=== PATIENT | male | born 1955 | race Caucasian/White ===

== ENCOUNTER → 2018-08-03 15:26 | Outpatient (CLI) | payer OTHER, SELFPAY ==
--- NOTE | 2018-08-03 15:31 | DI.RAD.S_ITS ---
PROCEDURE: XR LUMBAR SPINE 2-3V INDICATIONS: LOW BACK AND RT LEG PAIN TECHNIQUE: 3 views of the lumbar spine were acquired. COMPARISON: None. FINDINGS: Bones: 5 [id number] vertebrae are present. Minimal dextrocurvature centered at the L3-L4 level. Multilevel disc degeneration, severe at the L4-L5 and L5-S1 levels. Moderate L4-L5 and L5-S1 facet joint arthropathy. No vertebral body compression fractures. No suspicious bony lesions. Soft tissues: Overlying bowel gas pattern is normal. No suspicious soft tissue calcifications. Vascular calcifications indicate atherosclerosis. IMPRESSION: Multilevel degenerative change. Dictated by: Piotr Saleem [facility] Interpreted: Jonathan Joseph MD on 08/03/2018 at 16:11 Approved by: Jonathan Joseph M.D. on 08/03/2018 at 17:03
== END ==
PROVIDERS: Visit Provider Chiropractor
DX: M54.5 Low back pain (principal); M79.604 Pain in right leg; M47.816 Spondylosis without myelopathy or radiculopathy, lumbar region; M47.817 Spondylosis without myelopathy or radiculopathy, lumbosacral region
CPT/HCPCS: 72100

== ENCOUNTER → 2019-05-11 11:09 | Outpatient (CLI) | payer OTHER, SELFPAY ==
[2019-05-11 11:20] LABS: Bacteria Urine None Seen; RBC Urine None Seen (0-5/HPF); WBC Urine None Seen (0-5/HPF)
[2019-05-11 12:09] LABS: Add Manual Diff / Slide Review NO; Appearance Urine UA CLEAR; Basophils Absolute Auto 0 /uL (0-100); Basophils Percent Auto 0.7 % (0-2); Bilirubin Urine UA NEGATIVE (NEGATIVE); Color Urine UA YELLOW; Eosinophils Absolute Auto 400 /uL (0-450); Eosinophils Percent Auto 5.1 % (2-4); Glucose Urine UA NEGATIVE (Negative); Hematocrit 42.1 % (41-53); Hemoglobin 14.4 g/dL (13.5-17.5); Ketones Urine UA NEGATIVE (NEGATIVE); Leukocyte Esterase Urine UA NEGATIVE (NEGATIVE); Lymphocytes Absolute Auto 3000 /uL (1100-4500); Lymphocytes Percent Auto 41.1 % (25-40); Mean Corpuscular HGB Conc 34.2 % (30-36); Mean Corpuscular Hemoglobin 32.8 PG (26-34); Mean Corpuscular Volume 95.9 fL (80-100); Monocytes Absolute Auto 800 /uL (0-900); Monocytes Percent Auto 11.2 % (3-14); Neutrophils Absolute Auto 3100 /uL (1500-7000); Neutrophils Percent Auto 41.9 % (50-75); Nitrite Urine UA NEGATIVE (Negative); Occult Blood Urine UA NEGATIVE (Negative); Platelet Count 216 X10^3/uL (150-400); Protein Urine UA NEGATIVE (Negative); Red Blood Cell Count 4.39 X10^6/uL (4.5-5.9); Red Cell Distribution Width 13.3 % (11.6-14.8); Specific Gravity Urine UA <=1.005 (1.000-1.035); Urobilinogen Urine UA 0.2 E.U./dL (0.2); White Blood Cell Count 7.3 X10^3/uL (4.5-11.0); pH Urine UA 7.5 (4.5-8.0)
[2019-05-11 12:26] LABS: Hemoglobin A1C% w Est Avg Glu 5.3 % (4.0-6.0)
[2019-05-11 12:36] LABS: Culture Indicated Urine Cult Not Indicated
[2019-05-11 12:42] LABS: BUN Creatinine Ratio 18.8 (6-22); Blood Urea Nitrogen 15 mg/dL (9-20); Calcium 10.2 mg/dL (8.4-10.2); Carbon Dioxide 26 mmol/L (22-32); Chloride 99 mmol/L (98-107); Estimated Glomerular Filt Rate > 60.0 mL/min (>60); Glucose 83 mg/dL (80-110); HEMOLYSIS < 15 (0-50); Potassium 4.7 mmol/L (3.4-5.1); Sodium 136 mmol/L (137-145)
== END ==
PROVIDERS: Visit Provider Orthopaedic Surgery
DX: Z01.818 Encounter for other preprocedural examination (principal); Z01.812 Encounter for preprocedural laboratory examination; N39.9 Disorder of urinary system, unspecified; Z13.1 Encounter for screening for diabetes mellitus; R73.9 Hyperglycemia, unspecified
CPT/HCPCS: 36415; 80048; 81001; 83036; 85025; 93005; 93010

== ENCOUNTER 2019-08-05 06:13 | Day surgery (SDC) | payer MEDICARE, OTHER, SELFPAY ==
[2019-08-05] VITALS (15 sets, daily range): BP systolic 112–136; BP diastolic 61–88; PULSE 71–94; RESP 12–16; TEMP 35.9–36.8; O2SAT 91–97; BMI 31.6
--- NOTE | 2019-08-05 | DI.RAD.S_ITS ---
PROCEDURE: XR HIP RT 1V INDICATIONS: TOTAL HIP RIGHT ANTERIOR TECHNIQUE: 2 intraoperative fluoroscopic view(s) of the hip acquired. COMPARISON: None. FINDINGS: Bones: Patient is status post right hip arthroplasty, with hardware components in expected positions. The hip joint appears congruent. The visualized bony structures appear intact. Soft tissues: Overlying postoperative changes are noted. No suspicious soft tissue densities. IMPRESSION: Status post right total hip arthroplasty without acute hardware complication. The Dictated by: Anjum Perez M.D. on 08/05/2019 at 17:36 Approved by: Anjum Perez M.D. on 08/05/2019 at 17:37
--- NOTE | 2019-08-05 06:40 | DI.RAD.S_ITS ---
PROCEDURE: XR HIP W PEL IF DONE RT 2V INDICATIONS: post op TECHNIQUE: 2 view(s) of the hip acquired. COMPARISON: None. FINDINGS: Bones: Patient is status post right hip arthroplasty, with hardware components in expected positions. The hip joint appears congruent. The visualized bony structures appear intact. Lower lumbar spondylosis. Left hip joint degenerative changes. Soft tissues: Overlying postoperative changes are noted. No suspicious soft tissue densities. IMPRESSION: Status post right hip arthroplasty without acute hardware complication. Dictated by: Anjum Perez M.D. on 08/05/2019 at 17:47 Approved by: Anjum Perez M.D. on 08/05/2019 at 17:48
[2019-08-05] MEDS: VANCOMYCIN 1,000 MG/200 ML PIGGYBACK 200 MG IV (07:09)
[2019-08-05] MEDS: ACETAMINOPHEN 325 MG TABLET 975 MG PO (07:11)
[2019-08-05] MEDS: CELECOXIB 200 MG CAPSULE PO (07:11)
[2019-08-05] MEDS: PREGABALIN 75 MG CAPSULE PO (07:11)
--- NOTE | 2019-08-05 07:44 | PM.PREOP ---
Pre-operative Note Interval Note History & Physical reviewed/Exam performed by Physician: Yes Changes to H&P: No
--- NOTE | 2019-08-05 07:44 | PM.OP.1 ---
Operative Date/Time/Diagnoses Date of procedure: 08/05/19 Time of procedure: 07:59 Pre-op diagnosis: right hip OA Post-op diagnosis: same Procedure & Clinicians Procedure: right total hip arthroplasty Same procedure as scheduled: Yes Indications: The patient has had progressively worsening right hip pain with radiographic changes consistent with arthritis. Non-operative management has failed and the patient has requested total hip replacement. The risks, benefits and alternatives to surgery were discussed with the patient prior to proceeding. Risks discussed included, but were not limited to, failure to relieve pain, leg length discrepancy, dislocation, stiffness, infection, nerve damage, deep venous thrombosis, pulmonary embolism, stroke, coma, heart attack, permanent paralysis and , as well as the potential need for eventual revision of the prosthetic. Surgeon: Tatiana Slade Commercial Litigation Attorney: Matteo Rahman Anesthesia Type: General and Spinal Operative Notes Findings: Severe right hip osteoarthritis, hard bone, adequate stability Closure Type: primary Specimen(s): none sent Prosthetic devices, grafts, tissues, transplants, or devices: Slade [employer] Nephew 54 mm R3 cup, size 5 anthology high offset, -3 by 36mm head Estimated Blood Loss (mL): 250 Blood products transfused: none Procedure in detail: The patient was brought to the operating room. Patient was carefully positioned in the supine position. Time-out was performed and antibiotics were given. Anesthesia was induced. He was positioned in the on the table in order to allow hyperextension of the hip. The right lower extremity was prepped and draped in a standard sterile fashion. An anterior right hip incision was made 1 fingerbreadth lateral to the anterior superior iliac spine and extended distally towards the greater trochanter. Dissection was carried out through skin and subcutaneous tissues. The skin and subcutaneous tissues were carefully injected with Lidocaine with epi. Superficial hemostasis was achieved. The fascia over the tensor fascia dahiana was defined and incised with a knife. Two Allis clamps were used to grasp the fascia. Tensor fascia dahiana was retracted laterally. A gelpi retractor was placed. Dissection was carried out down along the neck. The circumflex vessels were carefully identified and cauterized with the Aqua Mantis. There was good visualization of the femoral neck. A Cobra was placed superior to the neck and the gluteus fibers were carefully stripped from that superior aspect of the capsule. A 2nd retractor was placed along the inferior aspect of the neck. The rectus insertion along the capsule was partially released. A 3rd retractor that was then gently placed over the rim of the acetabulum under the rectus. Capsule was carefully incised and released from the intertrochanteric line circumferentially superior to the mid sagittal line and inferiorly to the mid sagittal line until the lesser trochanter was palpable. A tag stitch was placed both in the superior and inferior limb of the capsular insertion. Along the acetabulum capsule was also released up to the mid sagittal 12:00 position. A portion of the labrum was resected. A saw was used to perform an osteotomy at the level of the intertrochanteric line and the junction of the superior femoral neck leaving approximately 1 finger breath of residual inferior neck above the lesser trochanter. A 2nd cut was made along the femoral neck at the base of the head and a napkin ring of neck was removed. Corkscrew was placed in the femoral head and the head was removed without difficulty. Retractors were then repositioned around the acetabulum. Residual labrum was resected and additional osteophytes were removed. A reamer that was 4 mm below the templated size was placed by hand in the acetabulum and it was reamed to centralize the acetabulum. It was then reamed up to 2 under the templated size and fluoroscopy was brought in to confirm the position of the reaming and depth of reaming. I reamed 1 under the anticipated size and touched the rim with line to line reaming. A trial cup was placed and noted that it was appropriately sized and fluoroscopy confirmed position and depth. The component was open and inserted without difficulty fluoroscopic imaging was used to confirm that the cup had been adequately seated and was well positioned. Neutral poly liner was placed. The cup was tested and noted to be stable. Attention was then directed to the femur. The femur was gently hyperextended additional capsular release was performed as needed in order to allow adequate visualization of the proximal femur with elevation of the femur. Patient was placed in a hyperextended slightly adducted position with maximum external rotation. Box osteotome was used to check for any residual neck as well as sclerotic bone along the trochanter. [place] pepper was placed in the femur. Additional broaching was performed. Canal finder was used to determine the alignment of the canal and position. Size 1 broach was placed. The canal was then appropriately broached up to the templated size as long as there was adequate stability of the broach and serial advancement of the broach without excessive impingement. Specific attention was directed at avoiding varus attempting to direct the distal aspect of the broach more anteriorly and avoiding excessive anteversion. Trial reduction showed acceptable range of motion, good stability, no posterior impingement, temple of leg length and appropriate lateral shuck. I also hyperflexed the hip and checked that there was no impingement anteriorly and there was good stability with flexion, adduction and internal rotation. Marcaine and Exparel were injected. The stem was placed without difficulty. Repeat trial reduction and x-ray showed acceptable overall position, length, and no evidence of the femoral fracture. Final head was placed. Wound was meticulously irrigated with normal saline. The hip was reduced and additional Exparel and Marcaine were injected. The capsule was closed with interrupted nonabsorbable sutures. The fascia of the tensor was closed with interrupted and running Vicryl. No drain was placed. Any tensor fascia dahiana muscle that appeared to be contused or injured which was a minimal amount was carefully resected. Capsule around the tensor was injected with Exparel and Marcaine. The skin was closed with barbed stitches for the subcutaneous tissue and skin. We also used surgical glue. The wound was dressed sterilely. Brief Betadine soak was also used and was meticulously irrigated with normal saline. Patient was transferred to recovery room in satisfactory condition. Complications: none Post-operative Condition: stable Disposition: Acute Care Plan for aftercare: The patient will be maintained on a standard total hip replacement protocol with weight bearing as tolerated and anterior hip precautions. The patient will receive Aspirin and sequential compression devices for DVT prophylaxis. The patient will be discharged home when safe for the home environment.
[2019-08-05] MEDS: CEFAZOLIN 2 GM/100 ML FROZ.PIGGY IV ×3 (08:06→23:57)
[2019-08-05] MEDS: TRANEXAMIC ACID 1,000 MG VIAL 1000 MG INJ ×2 (08:25→11:16)
--- NOTE | 2019-08-05 08:41 | SUR.OPER ---
Supine on padded [place] table with bilateral legs secured in padded positioning boots and suspended in positioning spars, operative leg in traction per surgeon. Head on one pillow. Arm on non-operative side secured on padded armboard <90 degrees abduction. Arm on operative side padded and resting across chest then secured with tape over sheet. Padded perineal post in place per surgeon.
[2019-08-05] MEDS: SODIUM CHLORIDE IRRIG SOLUTION 250 ML, POVIDONE-IODINE SPONGE STICKS 1 APPLIC IRR (08:48)
[2019-08-05] MEDS: BUPIVACAINE LIPOSOME 266 MG/20 ML VIAL INJ (08:49)
[2019-08-05] MEDS: BUPIVACAINE 0.25% W/ EPI 30 ML VIAL 60 ML INJ (08:51)
[2019-08-05] MEDS: LACTATED RINGERS 1,000 ML 42 ML IV (10:30)
[2019-08-05] MEDS: OXYCODONE IR 5 MG TABLET PO ×2 (12:17→12:43)
--- NOTE | 2019-08-05 13:02 | SUR.PHASEI ---
Patient taken up to room 223 in good condition with all belongings. Receiving RN at bedside
--- NOTE | 2019-08-05 13:56 | CM.DANOTE ---
patient sitting up eating lunch with at BS. Pt. a&Ox4 joking with and CM discussing his post surgery experience... No worse pain than before I came in, I'm getting discharged this afternoon. I thought you were brinng in my prescriptions.. were a couple of the comments he saidto me. Pt. denies any assistance needed from CM. States he and family have everything set up. He will be following up with [facility] next week for scheduled therapy.
--- NOTE | 2019-08-05 13:57 | PC.NURSE ---
Assess- Patient to floor around 1200. He has a aquacel dressing to his r.anterior hip. Given 2 perocolone down in Pacu and seems to be comfortable. CMS to R.hip is wnl, and ppx2. Patient is able to ankle waves and roll onto his side without any difficulty. He is on IVF and on a regular diet.
[2019-08-05] MEDS: LACTATED RINGERS 1,000 ML 125 ML IV ×2 (14:03→22:56)
[2019-08-05] MEDS: IBUPROFEN 400 MG TABLET PO ×3 (14:04→21:40)
[2019-08-05] MEDS: ACETAMINOPHEN 325 MG TABLET 650 MG PO ×2 (14:05→21:40)
--- NOTE | 2019-08-05 15:46 | PT.IIE ---
Current Diagnoses Unilateral primary osteoarthritis, right hip (08/05/19) Surgery Performed Operation Date: 08/05/19 07:45 Actual Procedures p Total Hip Arthroplasty/Anterior Approach(Right) - Tatiana Slade MD Surgical History (Last Updated 07/22/19 @ 13:51 by Tamela Schaeffer, NED) History of colonoscopy (Acute) History of tonsillectomy (Acute) S/P excision of lipoma (Acute ~2004) Medical History (Last Updated 07/22/19 @ 14:02 by Tamela Schaeffer RN) Hypertension (Chronic) Macular degeneration (Acute) Migraine (Chronic) Murmur (Acute) Obstructive sleep apnea (Chronic) Snoring (Chronic) Unilateral primary osteoarthritis, right hip (Acute) Physical Therapy Inpatient Evaluation/Re-Eval M1 PT/OT-IP Prior Functional Status Start: 08/05/19 14:03 Freq: NEEDED Status: Active Protocol: Document 08/05/19 15:21 AW (Rec: 08/05/19 15:46 AW [id number]) Medical Review Prior Functional Status Medical History Reviewed Yes Communication WNL Mobility and Gait Pt states he was independent with all functional mobility but does endorse use of a SPC ~10% of the time due to worsening right hip pain Activities of Daily Living and IADL's Independent but slow with lower body dressing due to pain. Prior Functional Level (Other details) Pt had a preop appointment at [facility] and will follow up with them in 10 days. Social History Household Members spouse Living Arrangements House Number of Floors (Floors) Two Floors Number of Stairs To Enter/Railing? 3 DARIUSZ with no railing. 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 His is able and available to assist 24/7 as needed. M2 PT-IP Current Condition Start: 08/05/19 14:03 Freq: NEEDED Status: Active Protocol: Document 08/05/19 15:21 AW (Rec: 08/05/19 15:46 AW [id number]) Physical Therapy Current Condition Current Condition Evaluation Date 08/05/19 Treatment Diagnosis s/p R TY with anterior approach Onset Date 08/05/19 Precautions Anterior Hip Precautions No Hip Extension,No Hip External Rotation Weight Bearing Status Weight Bearing Status Weight Bear as Tolerated M3 PT-IP Subjective Start: 08/05/19 14:03 Freq: NEEDED Status: Active Protocol: Document 08/05/19 15:21 AW (Rec: 08/05/19 15:46 AW [id number]) Subjective Physical Therapy Visit Type Type Initial Evaluation Visit Start Time 14:08 Visit Stop Time 15:06 Total Visit Minutes 58 Notes Pt's , Yeni, present throughout evaluation and participated in caregiver training. Physical Therapy Visit Comments Patient Comments Pt is feeling good and ready to get out of bed. Patient Goals Pt is considering discharge today Therapy Pain Assessment Pain When Pain Assessed During Mobility Pain Present Pain Present Pain Reported Location right hip Intensity 4 Scale Used 4/10 at rest; unchanged with mobility Pain Management Techniques Apply Cold,Timing of Activity with Medications M4 PT-IP Mobility and Gait Start: 08/05/19 14:03 Freq: NEEDED Status: Active Protocol: Document 08/05/19 15:21 AW (Rec: 08/05/19 15:46 AW [id number]) PT-Bed Mobility Assessment Supine to Sit Supine to Sit Standby Assistance Scooting Scooting to Edge of Bed Standby Assistance PT-Transfer Assessment Sit to and From Stand Sit to and from Stand Standby Assistance,1 Person Assistance,Use of Upper Extremities Equipment Transfer Assistive Device Gait Belt,Front Wheeled Walker Transfers Transfer Destination Chair,Wheelchair Transfer Technique pt ambulated with FWW Transfer Ability Level of Assist Standby Assistance,1 Person Assistance,Use of Upper Extremities Comments Mobility Comments Pt was encountered sitting up in bed. He completed bed mobility and supine to sit SBA with no need to support the operative leg. He was able to sit EOB without UE support and then stood using FWW SBA. After gait assessment, pt returned to the room and transferred to the chair SBA. At that point, pt asked about potential discharge this date and was willing to attempt stair navigation. Pt transferred to a wheelchair using FWW SBA and was pushed to the stairs. His participated in caregiver training for gait belt placement and was able to provide appropriate standby assist for stairs with B rails and with SPC. Pt was wheeled back to his room and he transferred back to the chair SBA where he was positioned with call light and table within reach. Gait Assessment Gait Gait Assistance Required: Standby Assistance Distance (Feet) 120 Able to Maintain Weight Bearing Status Yes During Gait Assistive Devices Assistive Device Gait Belt,Front Wheeled Walker Orthotic/Prosthetic Devices or Brace: No Gait Deviations General Gait Pattern Antalgic,Decreased Stride Length Factors Limiting Gait Function Factors Limiting Gait Function Decreased Strength,Pain Comments Gait Comments Pt ambulated in the hallway with FWW SBA. Gait was remarkable for decreased but symmetrical step length. Pt was appropriate and safe with FWW. Stair Climbing Assessment Evaluation Level of Assist On Stairs Standby Assistance,1 Person Assistance Devices Stair Climbing Assistive Devices Straight Cane,Left Railing, Right Railing Technique/Endurance Stair Climbing Direction Ascend and Descend Stair Climbing Technique Step to Step Number of Steps Climbed 3 Query Text: Stair Climbing Set # Repetitions (reps) 5 Comments Stair Climbing Comments Pt went up and down 3 stairs using SPC SBA and with his providing appropriate cues and guarding. He then went up and down 3 stairs x 4 with bilateral rails SBA to simulate stairs to second level. PT-Balance Assessment Sitting Balance and Reactions Static Sitting Balance Ability Normal Dynamic Sitting Balance Ability Normal Standing Balance and Reactions Static Standing Balance Ability Good Dynamic Standing Balance Ability Good Device Used FWW M5 PT-IP Objective Assessments Start: 08/05/19 14:03 Freq: NEEDED Status: Active Protocol: Document 08/05/19 15:21 AW (Rec: 08/05/19 15:46 AW [id number]) Orientation Orientation/Cognition Level of Alertness Alert Orientation Name,Day of Week,Place, Situation Language Function Ability No Deficits Noted Safety Awareness Understands Safety Issues Memory Description No Deficits Noted Gross Range of Motion Upper Extremity ROM Assessment Within Functional Limits Lower Extremity ROM Assessment Right Impaired Strength Upper Extremity Strength Assessment Within Functional Limits Lower Extremity Strength Assessment Right Impaired Comments Strength Comments LLE grossly 4+/5 Coordination Assessment Gross Coordination Gross Coordination WNL Sensation Assessment Sensation Gross Sensation WNL Muscle Tone Muscle Tone WNL Yes M6 PT-IP Treatment Start: 08/05/19 14:03 Freq: NEEDED Status: Active Protocol: Document 08/05/19 15:21 AW (Rec: 08/05/19 15:46 AW [id number]) Physical Therapy Treatment Exercises Exercises Ankle Pumps,Gluteal Sets,Quad Sets,Heel Slides Education Education Provided Precautions,Weight Bearing Status,Post-Op Packet,Safety Other Treatments Other Treatment Performed Provided education on role of PT, plan of care, post-op exercises, weightbearing status, and safe use of FWW. M7 PT-IP Assessment and Plan Start: 08/05/19 14:03 Freq: NEEDED Status: Active Protocol: Document 08/05/19 15:21 AW (Rec: 08/05/19 15:46 AW [id number]) PT Summary Assessment and Plan Potential Rehabilitation Potential Excellent Status of Condition at Evaluation Evolving Summary Impairments Pain,ROM,Strength,Transfers, Gait Assessment Summary Jim is a 64 yo man seen for PT evaluation on POD0 following R TY with anterior approach. At baseline, he is functionally independent in all regards though does admit to using a SPC ~10% of the time as hip pain worsened recently. On evaluation, pt required SBA for all mobility including stairs. His , Yeni, participated in caregiver training with instructionin using a gait belt, proper/safe guarding technique, and providing SBA on stairs. PT anticipates pt will discharge to home with spouse assist and outpatient PT once medically cleared. Goals Bed Mobility Goal Independent Transfer Goal Independent,Four Wheeled Walker Gait Goal Independent,Four Wheel Walker Gait Distance 200 Other Goals - up/down 3 steps using SPC independent - up/down 14 steps using B rails independent Days to Meet Goals 2 Frequency of Treatment Frequency Of Treatment Twice a Day Treatment Plan Physical Therapy Treatment Plan Bed Mobility Training,Transfer Training,Gait Training, Therapeutic Exercise,Balance Retraining,Post Op Education, Discharge Planning,Hot or Cold Pack,Neuromuscular Re-ed, Coordination Retraining,Manual Therapy Recommendations To Nursing Amount of Assist Needed Standby Assistance Discharge Recommendations PT Discharge Recommendations Home with Assistance, Outpatient PT Transportation Needs at Discharge Private Vehicle
[2019-08-05] MEDS: ASPIRIN EC 81 MG TABLET PO (21:40)
[2019-08-05] MEDS: DOCUSATE 100 MG CAPSULE PO (21:40)
[2019-08-06 00:37] VITALS: BP 121/78; PULSE 82; RESP 18; TEMP 36.4; O2SAT 97
[2019-08-06] MEDS: IBUPROFEN 400 MG TABLET PO ×3 (01:07→09:35)
[2019-08-06 04:38] VITALS: BP 131/75; PULSE 64; RESP 18; TEMP 36.6; O2SAT 100
[2019-08-06 05:52] LABS: Hematocrit 35.4 % (41-53)
[2019-08-06 08:05] VITALS: BP 131/90; PULSE 67; RESP 16; O2SAT 94
[2019-08-06 09:00] VITALS: TEMP 36.6
--- NOTE | 2019-08-06 09:31 | PT.IPTN ---
Current Diagnoses Unilateral primary osteoarthritis, right hip (08/05/19) Surgery Performed Operation Date: 08/05/19 07:45 Actual Procedures p Total Hip Arthroplasty/Anterior Approach(Right) - Tatiana Slade MD Physical Therapy Treatment Note M2 PT-IP Current Condition Start: 08/05/19 14:03 Freq: NEEDED Status: Active Protocol: Document 08/05/19 15:21 AW (Rec: 08/05/19 15:46 AW [id number]) Physical Therapy Current Condition Current Condition Evaluation Date 08/05/19 Treatment Diagnosis s/p R TY with anterior approach Onset Date 08/05/19 Precautions Anterior Hip Precautions No Hip Extension,No Hip External Rotation Weight Bearing Status Weight Bearing Status Weight Bear as Tolerated M3 PT-IP Subjective Start: 08/05/19 14:03 Freq: NEEDED Status: Active Protocol: Document 08/06/19 08:50 HH (Rec: 08/06/19 09:31 HH [id number]) Subjective Physical Therapy Visit Type Type Treatment Note Visit Start Time 08:50 Visit Stop Time 09:15 Total Visit Minutes 25 Notes Pt's , Yeni, present throughout later half of the session Physical Therapy Visit Comments Patient Comments Pt is feeling good and ready to get out of bed. Therapy Pain Assessment Pain Present Pain Present Denied Pain M4 PT-IP Mobility and Gait Start: 08/05/19 14:03 Freq: NEEDED Status: Active Protocol: Document 08/06/19 08:50 HH (Rec: 08/06/19 09:31 HH [id number]) PT-Bed Mobility Assessment Supine to Sit Supine to Sit Independent Scooting Scooting to Edge of Bed Independent PT-Transfer Assessment Sit to and From Stand Sit to and from Stand Standby Assistance,1 Person Assistance,Use of Upper Extremities Equipment Transfer Assistive Device Gait Belt,Front Wheeled Walker Transfers Transfer Destination Chair,Wheelchair Transfer Technique pt ambulated with FWW Transfer Ability Level of Assist Standby Assistance,1 Person Assistance,Use of Upper Extremities Comments Mobility Comments Pt was laying in bed reporting stiffness at the hip. He completed supine to long sit first and pivot his R LE slowly. Educated pt to use L ankle to unweigh RLE afterwards and he was able to perform x2 easily. He then stood up from bed and amb half of the AC unit and returned to chair with SBA. Pt used stagger stance for descend. Placed call light within reach . Gait Assessment Gait Gait Assistance Required: Standby Assistance Distance (Feet) 300 Able to Maintain Weight Bearing Status Yes During Gait Assistive Devices Assistive Device Gait Belt,Front Wheeled Walker Orthotic/Prosthetic Devices or Brace: No Gait Deviations General Gait Pattern Antalgic,Decreased Stride Length Factors Limiting Gait Function Factors Limiting Gait Function Decreased Strength,Pain Comments Gait Comments Pt reports stiffness at hip at first and amb with half step over gait but progress to full step over pattern with FWW. Cont to have slight antalgic gait. Stair Climbing Assessment Evaluation Level of Assist On Stairs Standby Assistance,Contact Guard Assistance Devices Stair Climbing Assistive Devices Straight Cane,Left Railing, Right Railing Technique/Endurance Stair Climbing Direction Ascend and Descend Stair Climbing Technique Step to Step Number of Steps Climbed 3 Stair Climbing Set # Repetitions (reps) 5 Comments Stair Climbing Comments SBA for using B rails. STEPDOWN NURSE on RUE for pt while pt using SPC on L UE. Demonstrated to pt's as well. PT-Balance Assessment Sitting Balance and Reactions Static Sitting Balance Ability Normal Dynamic Sitting Balance Ability Normal Standing Balance and Reactions Static Standing Balance Ability Good Dynamic Standing Balance Ability Good Device Used FWW M5 PT-IP Objective Assessments Start: 08/05/19 14:03 Freq: NEEDED Status: Active Protocol: Document 08/05/19 15:21 AW (Rec: 08/05/19 15:46 [id number]) Orientation Orientation/Cognition Level of Alertness Alert Orientation Name,Day of Week,Place, Situation Language Function Ability No Deficits Noted Safety Awareness Understands Safety Issues Memory Description No Deficits Noted Gross Range of Motion Upper Extremity ROM Assessment Within Functional Limits Lower Extremity ROM Assessment Right Impaired Strength Upper Extremity Strength Assessment Within Functional Limits Lower Extremity Strength Assessment Right Impaired Comments Strength Comments LLE grossly 4+/5 Coordination Assessment Gross Coordination Gross Coordination WNL Sensation Assessment Sensation Gross Sensation WNL Muscle Tone Muscle Tone WNL Yes M6 PT-IP Treatment Start: 08/05/19 14:03 Freq: NEEDED Status: Active Protocol: Document 08/05/19 15:21 AW (Rec: 08/05/19 15:46 [id number]) Physical Therapy Treatment Exercises Exercises Ankle Pumps,Gluteal Sets,Quad Sets,Heel Slides Education Education Provided Precautions,Weight Bearing Status,Post-Op Packet,Safety Other Treatments Other Treatment Performed Provided education on role of PT, plan of care, post-op exercises, weightbearing status, and safe use of FWW. M7 PT-IP Assessment and Plan Start: 08/05/19 14:03 Freq: NEEDED Status: Active Protocol: Document 08/06/19 08:50 HH (Rec: 08/06/19 09:31 HH [id number]) PT Summary Assessment and Plan Potential Rehabilitation Potential Excellent Status of Condition at Evaluation Evolving Summary Impairments Pain,ROM,Strength,Transfers, Gait Progress Towards Goals Safe For Discharge,Goals Met Assessment Summary Pt cont to improve without discomfort and pain. He was able to climb steps with B rails for multiple sets, followed by using SPC on LUE with STEPDOWN NURSE on RUE. Pt is currently safe to go home with 's assistance as needed and outpatient PT to improve mobility and strength. Goals Bed Mobility Goal Independent Transfer Goal Independent,Four Wheeled Walker Gait Goal Independent,Four Wheel Walker Gait Distance 200 Other Goals - up/down 3 steps using SPC independent - up/down 14 steps using B rails independent Days to Meet Goals 2 Frequency of Treatment Frequency Of Treatment Discharge Recommendations To Nursing Amount of Assist Needed Standby Assistance Discharge Recommendations PT Discharge Recommendations Home with Assistance, Outpatient PT Transportation Needs at Discharge Private Vehicle
[2019-08-06] MEDS: AMLODIPINE 5 MG TABLET 10 MG PO (09:35)
[2019-08-06] MEDS: ASPIRIN EC 81 MG TABLET PO (09:35)
[2019-08-06] MEDS: LOSARTAN 50 MG TABLET 100 MG PO (09:35)
[2019-08-06] MEDS: LEVOTHYROXINE 112 MCG TABLET PO (09:35)
[2019-08-06] MEDS: ACETAMINOPHEN 325 MG TABLET 650 MG PO (09:35)
[2019-08-06] MEDS: DOCUSATE 100 MG CAPSULE PO (09:35)
[2019-08-06] MEDS: MULTIVITAMIN 1 TABLET 1 TAB PO (09:36)
--- NOTE | 2019-08-06 10:23 | PC.NURSE ---
Patient is awake and has worked with physical therapy. He has a discharge order and will be released from the hospital at 11am. Dressing to r.anterior hip is an aquacel that is cdi. CMS wnl and ppx2 to r.foot. in room and visiting. Patient given tylenol and ibuprofen for pain and this has been helpful for him.
== END 2019-08-06 11:15 | disposition home or self-care (01) ==
LOC: AC 08-06 08:52 → OR 08-06 11:22
PROVIDERS: PCP Family Medicine; Visit Provider Orthopaedic Surgery
PROC: (CPT 27130; principal; 2019-08-05 07:45)
DX: M16.11 Unilateral primary osteoarthritis, right hip (principal)
CPT/HCPCS: 27130; 36415; 73501; 73502; 76000; 85014; 85018; 94760; 97116; 97161; 97530; C1776; C9290; J0690; J1100; J2250; J2405; J2704; J3010

== ENCOUNTER → 2020-08-02 09:59 | Outpatient (CLI) | payer MEDICARE, OTHER, SELFPAY ==
[2020-03-09 09:16] VITALS: BMI 31.6
[2020-08-02] MEDS: COVID-19 VACC #1, MRNA(MOD) 100 MCG/0.5 ML VIAL IM (10:04)
== END ==
PROVIDERS: Visit Provider Internal Medicine
DX: Z23 Encounter for immunization (principal)
CPT/HCPCS: 0011A; 91301

== ENCOUNTER → 2020-08-30 10:05 | Outpatient (CLI) | payer MEDICARE, OTHER, SELFPAY ==
[2020-03-09 09:16] VITALS: BMI 31.6
[2020-08-30] MEDS: COVID-19 VACC #2, MRNA(MOD) 100 MCG/0.5 ML VIAL IM (10:14)
== END ==
PROVIDERS: Visit Provider Internal Medicine
DX: Z23 Encounter for immunization (principal)
CPT/HCPCS: 0012A; 91301

== ENCOUNTER → 2021-01-18 08:08 | Outpatient (CLI) | payer MEDICARE, OTHER, SELFPAY ==
[2020-03-09 09:16] VITALS: BMI 31.6
--- NOTE | 2021-01-18 | DI.US.S_ITS ---
PROCEDURE: US ABD AORTA ANEURYSM SCREEN INDICATIONS: SCREEN TECHNIQUE: Real time scanning was performed of the aorta and iliac arteries, with image documentation. COMPARISON: None. FINDINGS: Aorta: Proximal aortic diameter measures 2.3 cm. Mid-aorta measures 2.0 cm. Distal aortic diameter is 1.7 cm. Iliac arteries: Right common iliac artery measures 1.0 cm. Left common iliac artery measures 1.0 cm. IMPRESSION: Negative for abdominal aortic aneurysm. Dictated by: Cecil Alvares M.D. on 01/18/2021 at 9:55 Approved by: Cecil Alvares M.D. on 01/18/2021 at 9:55
== END ==
PROVIDERS: PCP Family Medicine; Referring Provider Family Medicine; Visit Provider Family Medicine
DX: Z13.6 Encounter for screening for cardiovascular disorders (principal)
CPT/HCPCS: 76706

== ENCOUNTER → 2021-04-25 09:08 | Outpatient (CLI) | payer MEDICARE, OTHER, SELFPAY ==
[2020-03-09 09:16] VITALS: BMI 31.6
[2021-04-25 11:31] LABS: COVID19 -Nasal RAPID Negative (Negative)
== END ==
PROVIDERS: PCP Family Medicine; Referring Provider Nurse Practitioner; Visit Provider Nurse Practitioner
DX: Z01.812 Encounter for preprocedural laboratory examination (principal); Z20.822 Contact with and (suspected) exposure to COVID-19
CPT/HCPCS: 87635; C9803

== ENCOUNTER 2021-04-27 12:42 | Day surgery (SDC) | payer MEDICARE, OTHER, SELFPAY ==
[2020-03-09 09:16] VITALS: BMI 31.6
--- NOTE | 2021-04-27 | PATH_ITS ---
[facility] Accession Number: [id number] . 01 Material submitted: . colon - SIGMOID POLYP 1 CM . 02 Diagnosis: Sigmoid Colon Polyp, 1 cm, Polypectomy: Tubulovillous adenoma. Negative for high-grade dysplasia or malignancy. MRV 05/01/2021 1510 Local . 02 Electronically signed: . German Owusu MD, PhD, Pathologist NPI- [id number] . 01 Gross description: . SIGMOID POLYP 1 CM: Received in formalin is 1 fragment(s) of tellez, soft tissue measuring 1.5 x 1.2 x 0.5 cm which is inked, serially sectioned and submitted entirely in 1 cassette(s) /CHAU 04/28/2021 0241 Local . 02 Pathologist provided ICD-10: D12.5 . 02 CPT . 981182 Performed at: 01 [facility] [address] [facility], [place], [place] [id number] MD Salvador Michael MD Phone: [phone] Performed at: 02 [facility] [address] [place], [place] [id number] MD Chrissy Schuler MD Phone: [phone]
--- NOTE | 2021-04-27 11:57 | P.HP_ITS ---
History of Present Illness History of Present Illness Date Patient Seen: 04/27/21 Chief complaint: SDC Narrative: 65 year old male comes in today for consideration of a screening colonoscopy. Last colonoscopy in 2009, reportedly normal. There have been no lower GI symptoms suggesting disease such as change in bowel habits, bleeding, abdominal pain or anemia. There's been no family history of colon cancer or colon polyps. Overall health issues have been stable, including no major c ardiac events for at least 6 weeks. PCP: Dr. Harden Past medical history: Impaired fasting glucose History of smoking Hypertension Hyperlipidemia Hypothyroidism BPH Obstructive sleep apnea Erectile dysfunction: Degenerative joint disease of right hip Migraine Past surgical history: Elbow lumpectomy, 2006 Colonoscopy, 2009 Family history: No colon cancer or colon polyps. 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 Migraine Murmur Obstructive sleep apnea Snoring Unilateral primary osteoarthritis, right hip Surgical History History of colonoscopy History of right hip replacement (~07/2019) History of tonsillectomy S/P excision of lipoma (~2004) Family & Social History Social History: household members spouse Tobacco & Substance use: Tobacco type pipe,cigars Smoking Status Former smoker alcohol intake current alcohol intake frequency 0-2 drinks per day Substance Use Type does not use Meds Home Medications and Allergies Home Medications Medication Instructions Recorded Confirmed Type Respironics Dreamstation CPAP #1 ea 04/08/19 04/27/21 History amlodipine 10 mg tablet 10 mg PO DAILY 07/22/19 04/27/21 History atorvastatin 10 mg tablet 10 mg PO SEEINSTR 07/22/19 04/27/21 History glucosamine AYy-A4-Fbhygneqc 2 tab PO DAILY 07/22/19 04/27/21 History natalie 1,500 mg-400 unit-100 mg tablet (Glucosamine Daily Complex) levothyroxine 112 mcg tablet 112 mcg PO DAILY 07/22/19 04/27/21 History losartan 100 mg tablet 100 mg PO DAILY 07/22/19 04/27/21 History yrqupear-bmx-dfkug acid 0.4 1 tab PO DAILY 07/22/19 04/27/21 History mg-lycopene 300 mcg-lutein 250 mcg tablet (Centrum Silver) tadalafil 5 mg tablet (Cialis) 5 mg PO DAILY PRN 07/22/19 04/27/21 History vit C 250 mg-vit E 90 mg-zinc 40 1 tab PO BID 07/22/19 04/27/21 History mg-copper 1 tn-tlcbwu-fomomt capsule (PreserVision AREDS-2) aspirin 81 mg tablet,delayed 81 mg PO BID #40 tab 08/06/19 04/27/21 Rx release Allergies Allergy/AdvReac Type Severity Reaction Status Date / Time No Known Drug Allergies Allergy Verified 04/27/21 13:07 Review of Systems Review of Systems Narrative: All remaining ROS were reviewed and negative except as addressed. Exam Narrative Exam Narrative: GENERAL: Alert and oriented, appearing stated age and in no acute distress. HEENT: Head normocephalic/atraumatic. LUNGS: Clear to ausculation bilaterally, no wheezes, rhonchi or rales. CV: Normal S1 and S2 with regular rate and rhythm, no audible murmurs, rubs or gallops. ABDOMEN: Soft, non-tender, non-distended, no organomegaly. Positive bowel sounds. EXTREMITIES: No clubbing, cyanosis, or edema. NEURO: Cranial nerves II through XII grossly intact, no focal deficits. PSYCH: Alert and oriented x 3. SKIN: No concerning lesions. Assessment & Plan Assessment & Plan narrative: 1. Screening for colon cancer Plan for colonoscopy. The nature and character of the procedure as well as anticipated results were discussed. The possibility of not completing the procedure was also discussed. Possible complications including aspiration pneumonia, bleeding, perforation and reaction to medications either for sedation or preparation and missed lesions were discussed. Questions were answered and proceeding to the colonoscopy was elected. Informed consent signed. I sincerely appreciate the referral allowing me to participate in this patient's care. Please contact me with any questions or concerns.
--- NOTE | 2021-04-27 12:03 | PM.OP.COLON ---
Operative Date/Time/Diagnoses Date of procedure: 04/27/21 Procedure Notes SCOAP/Timeout: 1:48 p.m. Procedure in detail: ENDOSCOPIST: Mehreen Shabazz MD Sedation RN: Chirag Genao RN Sedation start time: 1:49 p.m. Sedation end time: 2:16 p.m. PROCEDURE: Sigmoidoscopy to 30 cm INDICATIONS: 1. Screening for colon cancer MEDICATION: Levsin 0.125 mg sublingual, incremental doses of Versed and fentanyl until appropriate level sedation achieved. ASA CLASS: 2 COMPLICATIONS: None. EXTENT OF PROCEDURE: Cecum. QUALITY OF PREP: Good with portions of liquid stool. PROCEDURE: Prior to insertion of the colonoscope, a digital rectal examination was accomplished with circumferential palpation of the distal rectal mucosa without significant findings being noted. The high-definition colonoscope was passed into the rectum in the usual fashion and advanced over to 30 cm without difficulty. At that point, further advancement of the scope was not possible despite multiple position changes to the left lateral decubitus position, supine position, and right lateral decubitus position. Gentle abdominal pressure in all of these positions did not aid in scope advancement. Decision was made to abandon colonoscopy secondary to risk of perforation and procedure was converted to a sigmoidoscopy. Upon withdrawal, care was taken to expose and inspect the haustral folds and mild diverticulosis was noted throughout. A 1 cm sessile polyp was seen just proximal to the area where the scope could not be advanced. Polyp was lifted with methylene blue and removed with cold snare in 1 piece. Excellent hemostasis noted. RECTUM: Normal. J maneuver was produced. There was no significant perianal disease. The J maneuver was broken. The remainder of the rectum was inspected and there was no external hemorrhoid disease. The scope was withdrawn. IMPRESSION: 1. Sigmoid polyp x1, 1 cm, lifted with methylene blue and removed with cold snare, excellent hemostasis 2. Sigmoid diverticulosis, mild 3. Failed colonoscopy secondary to inability to intubate past 30 cm. PLAN: 1. Follow-up in clinic status post pathology results. 2. Referral to GI. The possibility of a missed lesion including a malignancy has been discussed with the patient previously. Potential alarm symptoms have been discussed and should be reported immediately.
[2021-04-27 13:10] VITALS: BP 118/75; PULSE 73; RESP 16; TEMP 36.8; O2SAT 96; BMI 28.1
[2021-04-27] MEDS: LACTATED RINGERS 1,000 ML 200 ML IV (13:39)
[2021-04-27] MEDS: HYOSCYAMINE 0.125 MG TABLET PO (13:41)
[2021-04-27] MEDS: fentaNYL 250 MCG/5 ML INJ IV (13:53)
[2021-04-27] MEDS: MIDAZOLAM 5 MG/5 ML VIAL IV (13:53)
[2021-04-27] MEDS: METHYLENE BLUE 50 MG/10 ML VIAL INJ (14:09)
[2021-04-27 14:20] VITALS: BP 96/55; PULSE 65; RESP 20; TEMP 36.5; O2SAT 95
[2021-04-27 14:24] VITALS: BP 110/69; PULSE 66; RESP 25; O2SAT 92
[2021-04-27 14:35] VITALS: BP 120/80; PULSE 65; RESP 14; TEMP 36.4; O2SAT 95
== END 2021-04-27 14:45 | disposition home or self-care (01) ==
PROVIDERS: PCP Family Medicine; Referring Provider Student in an Organized Health Care Education/Training Program; Visit Provider Student in an Organized Health Care Education/Training Program
PROC: 0DJD8ZZ Inspection of Lower Intestinal Tract, Via Natural or Artificial Opening Endoscopic (ICD-10-PCS; CPT 45378; principal; 2021-04-27 13:45)
DX: Z12.11 Encounter for screening for malignant neoplasm of colon (principal); I10 Essential (primary) hypertension; E78.5 Hyperlipidemia, unspecified; E03.9 Hypothyroidism, unspecified; G47.33 Obstructive sleep apnea (adult) (pediatric); K57.30 Diverticulosis of large intestine without perforation or abscess without bleeding; Z53.09 Procedure and treatment not carried out because of other contraindication; D12.5 Benign neoplasm of sigmoid colon
CPT/HCPCS: 45385; 45381; J2250; J3010; Q9968

== ENCOUNTER → 2021-08-27 08:59 | Outpatient (CLI) | payer MEDICARE, OTHER, SELFPAY ==
[2020-03-09 09:16] VITALS: BMI 31.6
[2021-08-27 10:45] LABS: COVID19 -Nasal RAPID Negative (Negative)
== END ==
PROVIDERS: PCP Family Medicine; Visit Provider Family Medicine Sleep Medicine
DX: Z20.822 Contact with and (suspected) exposure to COVID-19 (principal)
CPT/HCPCS: 87635; C9803

== ENCOUNTER 2021-08-29 09:31 | Day surgery (SDC) | payer MEDICARE, OTHER, SELFPAY ==
[2020-03-09 09:16] VITALS: BMI 31.6
[2021-08-29 09:43] VITALS: BP 129/72; PULSE 68; RESP 18; TEMP 36.4; O2SAT 97; BMI 29.0
--- NOTE | 2021-08-29 10:18 | PM.HP.1 ---
History of Present Illness History of Present Illness Date Patient Seen: 08/29/21 Chief complaint: DX COLONOSCOPY Narrative: History of failed colonoscopy though large tubulovillous adenoma removed in the sigmoid. 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 Migraine Murmur Obstructive sleep apnea Snoring Unilateral primary osteoarthritis, right hip Surgical History History of colonoscopy History of right hip replacement (~07/2019) History of tonsillectomy S/P excision of lipoma (~2004) Family & Social History Social History: household members spouse Tobacco & Substance use: Tobacco type pipe,cigars Smoking Status Former smoker alcohol intake current alcohol intake frequency 0-2 drinks per day Substance Use Type does not use Meds Home Medications and Allergies Home Medications Medication Instructions Recorded Confirmed Type Respironics Dreamstation CPAP #1 ea 04/08/19 08/29/21 History amlodipine 10 mg tablet 10 mg PO DAILY 07/22/19 08/29/21 History atorvastatin 10 mg tablet 10 mg PO SEEINSTR 07/22/19 08/29/21 History glucosamine UUo-S5-Srumundei 2 tab PO DAILY 07/22/19 08/29/21 History natalie 1,500 mg-400 unit-100 mg tablet (Glucosamine Daily Complex) levothyroxine 112 mcg tablet 112 mcg PO DAILY 07/22/19 08/29/21 History losartan 100 mg tablet 100 mg PO DAILY 07/22/19 08/29/21 History dompeikp-zfu-kqqgh acid 0.4 1 tab PO DAILY 07/22/19 08/29/21 History mg-lycopene 300 mcg-lutein 250 mcg tablet (Centrum Silver) tadalafil 5 mg tablet (Cialis) 5 mg PO DAILY PRN 07/22/19 08/29/21 History vit C 250 mg-vit E 90 mg-zinc 40 1 tab PO BID 07/22/19 08/29/21 History mg-copper 1 at-qieymj-emzway capsule (PreserVision AREDS-2) aspirin 81 mg tablet,delayed 81 mg PO BID #40 tab 08/06/19 08/29/21 Rx release Allergies Allergy/AdvReac Type Severity Reaction Status Date / Time No Known Drug Allergies Allergy Verified 08/29/21 09:39 Exam Vital Signs (past 8 hours): - 08/29/21 09:43 Temperature 97.5 F L Pulse Rate 68 Respiratory Rate 18 Blood Pressure 129/72 Pulse Oximetry 97 Oxygen Delivery Method Room Air Narrative Exam Narrative: Oropharynx free of lesions Chest clear to auscultation percussion Cardiac exam reveals no S3 or murmur Assessment & Plan Assessment & Plan narrative: Colonoscopy other than removal of a large tubulovillous adenoma. Need to follow up on polypectomy site and complete colonoscopy. To delay may cause advancement of disease. Risks, benefits, alternatives have been explained. Time Spent With Patient Critical Care time: I spent a total of [] minutes of critical care time on this patient's care today; this time is exclusive of procedural time.
--- NOTE | 2021-08-29 10:19 | PM.OP.COLON ---
Operative Date/Time/Diagnoses Date of procedure: 08/29/21 Pre-op diagnosis: See indication and findings Procedure & Clinicians Study performed: Colonoscopy Indications: Failed to complete colonoscopy but also large tubulovillous adenoma removed from the sigmoid. Need to check polypectomy site incomplete colonoscopy. Procedure Notes Procedure in detail: After informed consent was obtained the patient was placed in left lateral decubitus position. Video colonoscope was introduced the rectum slowly advanced to the cecum. On slow withdrawal mucosa was carefully examined. Preparation was good. The scope was removed. The patient of the procedure well. Blood loss none Complications none Sedation mac Findings 1. Extensive diverticulosis particularly in the sigmoid with narrowed lumen and tortuosity. This looks difficult time navigating. 2. No polypectomy site was seen at this time. No tattoo was seen either. 3. Otherwise negative colonoscopy to cecum Patient should have follow-up colonoscopy in 3 years given the histologic type of polyp.
[2021-08-29 11:11] VITALS: BP 95/62; PULSE 71; RESP 15; TEMP 36.4; O2SAT 94
[2021-08-29 11:15] VITALS: BP 87/65; PULSE 63; RESP 18; O2SAT 95
[2021-08-29 11:19] VITALS: BP 116/67; PULSE 62; RESP 18; O2SAT 96
--- NOTE | 2021-08-29 11:19 | SUR.PHASEI ---
Discharge instructions reviewed with pt and he verbalized understanding. Tolerating water with no c/o nausea noted.
[2021-08-29 11:25] VITALS: BP 114/78; PULSE 64; RESP 15; O2SAT 96
== END 2021-08-29 11:34 | disposition home or self-care (01) ==
PROVIDERS: PCP Family Medicine; Referring Provider Internal Medicine Gastroenterology; Visit Provider Internal Medicine Gastroenterology
PROC: 0DJD8ZZ Inspection of Lower Intestinal Tract, Via Natural or Artificial Opening Endoscopic (ICD-10-PCS; CPT 45378; principal; 2021-08-29 11:00)
DX: Z12.11 Encounter for screening for malignant neoplasm of colon (principal); I10 Essential (primary) hypertension; E78.5 Hyperlipidemia, unspecified; Z86.010 Personal history of colon polyps; K57.30 Diverticulosis of large intestine without perforation or abscess without bleeding
CPT/HCPCS: G0105

== ENCOUNTER → 2023-02-21 15:16 | Outpatient (CLI) | payer MEDICARE, OTHER, SELFPAY ==
[2020-03-09 09:16] VITALS: BMI 31.6
== END ==
PROVIDERS: PCP Family Medicine; Referring Provider Orthopaedic Surgery; Visit Provider Orthopaedic Surgery
DX: Z01.818 Encounter for other preprocedural examination (principal)
CPT/HCPCS: 93005

== ENCOUNTER 2023-03-18 11:54 | Day surgery (SDC) | payer MEDICARE, OTHER, SELFPAY ==
[2020-03-09 09:16] VITALS: BMI 31.6
[2023-03-13 10:19] VITALS: BMI 29.7
[2023-03-18] VITALS (8 sets, daily range): BP systolic 80–128; BP diastolic 53–75; PULSE 66–82; RESP 12–20; TEMP 36.2–36.8; O2SAT 94–98; BMI 29.7
--- NOTE | 2023-03-18 06:00 | DI.RAD.S_ITS ---
PROCEDURE: XR HIP W PEL IF DONE LT 2V INDICATIONS: left TY, anterior TECHNIQUE: 2 view(s) of the hip acquired. COMPARISON: [facility], CR, XR HIP W PEL IF DONE RT 2V, 08/05/2019, 12:16. FINDINGS: Bones: Patient is status post bilateral hip arthroplasty, with hardware components in expected positions. Fluoroscopic images demonstrate interval left total hip arthroplasty. Soft tissues: Overlying postoperative changes are noted. No suspicious soft tissue densities. IMPRESSION: Postoperative changes of total left hip arthroplasty with remote right hip arthroplasty. Dictated by: Luigi Beckwith M.D. on 03/19/2023 at 10:17 Approved by: Luigi Beckwith M.D. on 03/19/2023 at 10:18
[2023-03-18] MEDS: ACETAMINOPHEN 325 MG TABLET 975 MG PO (12:25)
[2023-03-18] MEDS: LACTATED RINGERS 1,000 ML 42 ML IV ×2 (12:27→15:29)
[2023-03-18] MEDS: VANCOMYCIN 1,000 MG/200 ML PIGGYBACK 200 MG IV (13:08)
--- NOTE | 2023-03-18 13:52 | PM.PREOP ---
Pre-operative Note Interval Note History & Physical reviewed/Exam performed by Physician: Yes Changes to H&P: No
--- NOTE | 2023-03-18 13:53 | P.OP_ITS ---
Operative Date/Time/Diagnoses Date of procedure: 03/18/23 Time of procedure: 14:20 Pre-op diagnosis: Left hip OA Post-op diagnosis: same Procedure & Clinicians Procedure: Left total hip arthroplasty anterior approach Same procedure as scheduled: Yes Indications: The patient has had progressively worsening left hip pain with radiographic zavaleta ges consistent with arthritis. Non-operative management has failed and the patient has requested total hip replacement. The risks, benefits and alternatives to surgery were discussed with the patient prior to proceeding. Risks discussed included, but were not limited to, failure to relieve pain, leg length discrepancy, dislocation, stiffness, infection, nerve damage, deep venous thrombosis, pulmonary embolism, stroke, coma, heart attack, permanent paralysis and , as well as the potential need for eventual revision of the prosthetic. Surgeon: Tatiana Slade Joint Cutter Machine: Sergei Rosales Anesthesia Type: General and Spinal Operative Notes Findings: Severe left hip OA, adequate bone, adequate stability Closure Type: primary Specimen(s): none sent Prosthetic devices, grafts, tissues, transplants, or devices: Slade and nephew R3 54, neutral poly liner, one 6.5 mm screw. Anthology A high offset size 6, 36 x -3 Oxinium head Estimated Blood Loss (mL): 250 Blood products transfused: none Procedure in detail: The patient was brought to the operating room. Patient was carefully positioned in the supine position. Time-out was performed and antibiotics were given. Anesthesia was induced. He was positioned in the on the table in order to allow hyperextension of the hip. The left lower extremity was prepped and draped in a standard sterile fashion. An anterior left hip incision was made 1 fingerbreadth lateral to the anterior superior iliac spine and extended distally towards the greater trochanter. Dissection was carried out through skin and subcutaneous tissues. Superficial hemostasis was achieved. The fascia over the tensor fascia dahiana was defined and incised with a knife. Two Allis clamps were used to grasp the fascia. Tensor fascia dahiana was retracted laterally. A gelpi retractor was placed. Dissection was carried out down along the neck. The circumflex vessels were carefully identified and cauterized with the Aqua Mantis. PA was used throughout the procedure and was essential for retraction and helping establish adequate hemostasis. They were also extremely helpful for adequately implanting the components. There was good visualization of the femoral neck. A Cobra was placed superior to the neck and the gluteus fibers were carefully stripped from that superior aspect of the capsule. He had a very tight hip and fairly tight musculature around the hip which made exposure somewhat more difficult. A 2nd retractor was placed along the inferior aspect of the neck. The rectus insertion along the capsule was partially released. A 3rd retractor that was then gently placed over the rim of the acetabulum under the rectus. Capsule was carefully incised and released from the intertrochanteric line circumferentially superior to the mid sagittal line and inferiorly to the mid sagittal line until the lesser trochanter was palpable. A tag stitch was placed both in the superior and inferior limb of the capsular insertion. Along the acetabulum capsule was also released up to the mid sagittal 12:00 position. A portion of the labrum was resected. A saw was used to perform an osteotomy at the level of the intertrochanteric line and the junction of the superior femoral neck leaving approximately 1 finger breath of residual inferior neck above the lesser trochanter. A 2nd cut was made along the femoral neck at the base of the head and a napkin ring of neck was removed. Corkscrew was placed in the femoral head and the head was removed without difficulty. Retractors were then repositioned around the acetabulum. Residual labrum was resected and additional osteophytes were removed. A reamer that was 4 mm below the templated size was placed by hand in the acetabulum and it was reamed to centralize the acetabulum. It was then reamed up to 2 under the templated size and fluoroscopy was brought in to confirm the position of the reaming and depth of reaming. I reamed 1 under the anticipated size. There was slight eccentric reaming anteriorly. A trial cup was placed and noted that it was appropriately sized and fluoroscopy confirmed position and depth. The component was open and inserted with fluoroscopic imaging was used to confirm that the cup had been adequately seated and was well positioned. The cup was checked it was then readjusted slightly and reinserted. It was further stabilized with screws. The stability was specifically checked. There was good bite on the screws. Neutral poly liner w as placed. The cup was tested and noted to be stable. Attention was then directed to the femur. The femur was gently hyperextended additional capsular release was performed as needed in order to allow adequate visualization of the proximal femur with elevation of the femur. Patient was placed in a hyperextended slightly adducted position with maximum external rotation. Box osteotome was used to check for any residual neck as well as sclerotic bone along the trochanter. [place] pepper was placed in the femur. Additional broaching was performed. Canal finder was used to determine the alignment of the canal and position. Size 1 broach was placed. The canal was then appropriately broached up to the templated size as long as there was adequate stability of the broach and serial advancement of the broach without excessive impingement. Specific attention was directed at avoiding varus attempting to direct the distal aspect of the broach more anteriorly and avoiding excessive anteversion. Trial reduction showed acceptable range of motion, good stability, no posterior impingement, mandaen of leg length and appropriate lateral shuck. I also hyperflexed the hip and checked that there wa s no impingement anteriorly and there was good stability with flexion, adduction and internal rotation. Marcaine and Exparel were injected. The stem was placed without difficulty. Repeat trial reduction and x-ray showed acceptable overall position, length, and no evidence of the femoral fracture. Final head was placed. Wound was meticulously irrigated with normal saline. The hip was reduced and additional Exparel and Marcaine were injected. The capsule was closed with interrupted nonabsorbable sutures. The fascia of the tensor was closed with interrupted and running Vicryl. No drain was placed. Any tensor fascia dahiana muscle that appeared to be contused or injured which was a minimal amount was carefully resected. Capsule around the tensor was injected with Exparel and Marcaine. The skin was closed with barbed stitches for the subcutaneous tissue and skin. We also used surgical glue. The wound was dressed sterilely. Brief Betadine soak was also used and was meticulously irrigated with normal saline. Patient was transferred to recovery room in satisfactory condition. Complications: none Post-operative Condition: stable Disposition: Acute Care Plan for aftercare: The patient will be maintained on a standard total hip replacement protocol with weight bearing as tolerated and anterior hip precautions. The patient will receive Aspirin and sequential compression devices for DVT prophylaxis. The patient will be discharged home when safe for the home environment.
[2023-03-18] MEDS: CEFAZOLIN 2 GM/100 ML PREMIX 100 ML IV ×2 (14:30→22:39)
[2023-03-18] MEDS: TRANEXAMIC ACID 1,000 MG VIAL 2000 MG INJ ×2 (15:00→17:29)
--- NOTE | 2023-03-18 15:11 | SUR.OPER ---
Patient supine on padded [place] table, one arm on padded arm board at <90, other arm padded with gel and secured with tape across patient's chest, both legs secured in padded traction boots and positioned per surgeon, padded post at patient's groin, pressure points checked and padded.
[2023-03-18] MEDS: BUPIVACAINE 0.25% (PF) 60 ML, EPINEPHrine 0.3 MG INJ (16:56)
[2023-03-18] MEDS: BUPIVACAINE LIPOSOME 266 MG/20 ML VIAL INJ (16:57)
--- NOTE | 2023-03-18 18:00 | DI.RAD.S_ITS ---
PROCEDURE: XR HIP W PEL IF DONE LT 2V INDICATIONS: LEFT HIP ANTERIOR POST OP TECHNIQUE: 2 view(s) of the hip acquired. COMPARISON: [facility], [place], XR HIP W PEL IF DONE LT 2V, 03/18/2023, 16:10. [facility], [place], XR HIP W PEL IF DONE RT 2V, 08/05/2019, 12:16. FINDINGS: Bones: Patient is status post left hip arthroplasty, with hardware components in expected positions. The hip joint appears congruent. The visualized bony structures appear intact. Remote right hip arthroplasty. Soft tissues: Overlying postoperative changes are noted. No suspicious soft tissue densities. IMPRESSION: Status post interval left hip arthroplasty now with bilateral total hip arthroplasties. Dictated by: Luigi Beckwith M.D. on 03/19/2023 at 10:18 Approved by: Luigi Beckwith M.D. on 03/19/2023 at 10:19
[2023-03-18] MEDS: ACETAMINOPHEN 325 MG TABLET 650 MG PO (18:40)
[2023-03-18] MEDS: IBUPROFEN 400 MG TABLET PO ×2 (18:40→22:38)
[2023-03-18] MEDS: LACTATED RINGERS 1,000 ML 100 ML IV (18:41)
--- NOTE | 2023-03-18 18:55 | PC.NURSE ---
Postop Note Pt to room 223 from PACU at 1825. Alert and oriented x4. SpO2 in the upper 90s. Reports pain 2/10 to left hip, received scheduled tylenol and ibuprofen. Pt declines further medication at this time. CMS intact to both lower extremities other than some numbness to top of both feet. Oriented to room and to bed/tv/call light controls. Call light within reach and bed alarm on.
[2023-03-18] MEDS: VIT C/E/ZN/COPPR/LUTEIN/ZEAXAN CAPSULE 1 CAP PO (20:46)
[2023-03-18] MEDS: DOCUSATE 100 MG CAPSULE PO (20:46)
[2023-03-18] MEDS: ATORVASTATIN 20 MG TABLET 10 MG PO (20:46)
[2023-03-18] MEDS: ASPIRIN EC 81 MG TABLET PO (20:46)
[2023-03-19] MEDS: ACETAMINOPHEN 325 MG TABLET 650 MG PO ×3 (00:09→12:08)
[2023-03-19] MEDS: IBUPROFEN 400 MG TABLET PO ×3 (02:39→10:00)
[2023-03-19] MEDS: CEFAZOLIN 2 GM/100 ML PREMIX 100 ML IV (05:26)
[2023-03-19] MEDS: LEVOTHYROXINE 112 MCG TABLET PO (05:27)
[2023-03-19 05:29] LABS: Hematocrit 36.6 % (41-53); Hemoglobin 12.4 g/dL (13.5-17.5)
--- NOTE | 2023-03-19 07:22 | P.DS_ITS ---
History of Present Illness History of Present Illness Date Patient Seen: 03/19/23 Time Patient Seen: 07:22 Chief complaint: Left Total Hip Arthroplasty/Anterior Approach 03/18 Narrative: Operative Date/Time/Diagnoses Date of procedure: 03/18/23 Time of procedure: 14:20 Pre-op diagnosis: Left hip OA Post-op diagnosis: same Procedure & Clinicians Procedure: Left total hip arthroplasty anterior approach Same procedure as scheduled: Yes Indications: The patient has had progressively worsening left hip pain with radiographic c hanges consistent with arthritis. Non-operative management has failed and the patient has requested total hip replacement. The risks, benefits and alternatives to surgery were discussed with the patient prior to proceeding. Risks discussed included, but were not limited to, failure to relieve pain, leg length discrepancy, dislocation, stiffness, infection, nerve damage, deep venous thrombosis, pulmonary embolism, stroke, coma, heart attack, permanent paralysis and , as well as the potential need for eventual revision of the prosthetic. Surgeon: Tatiana Slade Prepress Supervisor: Sergei Rosales Anesthesia Type: General and Spinal Operative Notes Findings: Severe left hip OA, adequate bone, adequate stability Closure Type: primary Specimen(s): none sent Prosthetic devices, grafts, tissues, transplants, or devices: Slade and nephew R3 54, neutral poly liner, one 6.5 mm screw.? Anthology A high offset size 6, 36 x -3 Oxinium head Estimated Blood Loss (mL): 250 Blood products transfused: none Discharge Providers Provider Discharge Date: 03/19/23 Primary care physician: Coleman Harden MD Consults: 03/18/23 06:00 Consult to Anesthesiology Routine Comment: Consulting Provider: Anesthesiologist Reason for consultation: Regional block for post operative pain control 03/18/23 18:20 Consult to Discharge Planning Routine Comment: Consult to Occupational Therapy Evaluate & Treat Comment: Physician Instructions: Evaluate and treat Consult to Physical Therapy Evaluate & Treat Comment: Physician Instructions: post op TY protocol Discharge provider: Herlinda Barker PA-C Summary Hospital Course Discharge Diagnosis: Left hip osteoarthritis, s/p left total hip arthroplasty Hospital Course: Mr Fuentes's hospital course was unremarkable. On the morning of POD# 1, he was feeling well and wanted to go home. He was eating and voiding without difficulty and his pain was well-controlled with oral medication. He had not yet been evaluated by PT, but had been OOB and walking. Exam Vital Signs (past 8 hours): Oxygen Delivery Method CPAP Oxygen Flow Rate 0 Narrative Exam Narrative: 5/5 strength in hip flexors, quadriceps, hamstrings, DF, PF, EHL on left. Sensation to light touch intact throughout LE. Calf soft, compressible, nontender. Aquacel dressing CDI. 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 ASA 81mg BID x 6 weeks for VTE prophylaxis, outpt PT, f/u in office in 2 weeks as scheduled. Discharge Plan Discharge Plan Patient Disposition: Home Discharge orders & Medications Discharge Orders: Discharge (Order); Ordered 03/19/23 Ordered By: Herlinda Barker Prescriptions: Continued atorvastatin 10 mg Tablet 10 mg PO SEEINSTR Rx Instructions: every other day amlodipine 10 mg Tablet 10 mg PO DAILY losartan 100 mg Tablet 100 mg PO DAILY levothyroxine 112 mcg Tablet 112 mcg PO DAILY tadalafil [Cialis] 5 mg Tablet 5 mg PO DAILY PRN (Reason: Sexual Activity) Centrum Silver 0.4-300-250 mg-mcg-mcg Tablet 1 tab PO DAILY [id number] serr [Glucosamine Daily Complex] 1,500-400-100 mg-unit-mg Tablet 2 tab PO DAILY PreserVision AREDS-2 178-289-24-1 et-xqit-di-mg Capsule 1 tab PO BID aspirin 81 mg Tablet,Delayed Release (Dr/Ec) 81 mg PO BID Qty: 40 0RF (DME) Respironics Dreamstation CPAP Qty: 1 Patient Comments: Pressure: 8-18 cmH2O DME: [facility] Rx Instructions: As directed Follow up/Referrals: Tatiana Slade MD [Physician] - As previously scheduled (Follow up with Dr Slade on 04/02/2023 @ 1:30 pm at [facility] office in [place].) Coleman Harden MD [Primary Care Provider] - Diet/Activity/Treatments Diet: Diet as Tolerated Activity: Weightbearing as tolerated to left leg. Anterior hip precautions. Cold/Heat Therapy: Ice to hip as needed for pain. Skin/Wound/Dressing Care Report to your healthcare provider any signs of infection, such as:: chills, fever, night sweats, unusual drainage and unusual redness Dressing: May shower. Leave dressing in place until follow up in office. No bathing or otherwise soaking incision. Call the office if the dressing becomes saturated inside. Visit Report/Discharge Packet Instructions: DI for Hip Replacement, DI for Prescription Opioid Use Stand Alone Forms: Patient Portal/API, Surgery Discharge Discharge Data Primary Care Provider: Coleman Harden Attending Provider: Tatiana Slade Quality VTE Deep Vein Thrombosis/Pulmonary Embolism Present on Admission: No
[2023-03-19 08:30] VITALS: BP 128/65
[2023-03-19] MEDS: LOSARTAN 50 MG TABLET 100 MG PO (08:30)
[2023-03-19] MEDS: DOCUSATE 100 MG CAPSULE PO (08:30)
[2023-03-19] MEDS: ASPIRIN EC 81 MG TABLET PO (08:30)
[2023-03-19] MEDS: AMLODIPINE 5 MG TABLET 10 MG PO (08:31)
[2023-03-19] MEDS: VIT C/E/ZN/COPPR/LUTEIN/ZEAXAN CAPSULE 1 CAP PO (08:31)
[2023-03-19] MEDS: MULTIVITAMIN 1 TABLET 1 TAB PO (08:31)
--- NOTE | 2023-03-19 10:10 | PT.IIE ---
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 Migraine Murmur Obstructive sleep apnea Snoring Unilateral primary osteoarthritis, right hip Physical Therapy Inpatient Evaluation/Re-Eval M1 PT/OT-IP Prior Functional Status Start: 03/19/23 12:02 Freq: NEEDED Status: Active Protocol: Document 03/19/23 10:10 AB (Rec: 03/19/23 12:20 AB [id number]) Medical Review Prior Functional Status Medical History Reviewed Yes Communication able to make needs known Mobility and Gait pt stated that he is independent with all mobilities and ambulation without AD Social History Household Members spouse Living Arrangements House Number of Floors (Floors) Two Floors Number of Stairs To Enter/Railing? 2 platform stept without rails to enter the house 14 steps B rails to get to 2nd level bedroom Home Environment Standard Height Toilet,Walk in Shower Home Equipment Front Wheel Walker,Straight Cane,Raised Toilet Seat w/ Armrests,Shower Seat without Backrest,Hand Held Shower,Grab Bars In Shower M2 PT-IP Current Condition Start: 03/19/23 12:02 Freq: NEEDED Status: Active Protocol: Document 03/19/23 10:10 AB (Rec: 03/19/23 12:20 AB [id number]) Physical Therapy Current Condition Current Condition Evaluation Date 03/19/23 Treatment Diagnosis s/p L TY anterior approach; difficulty in walking Onset Date 03/18/23 M3 PT-IP Subjective Start: 03/19/23 12:02 Freq: NEEDED Status: Active Protocol: Document 03/19/23 10:10 AB (Rec: 03/19/23 12:20 AB [email or web address]) Subjective Physical Therapy Visit Type Type Initial Evaluation Visit Start Time 10:10 Visit Stop Time 11:10 Total Visit Minutes 60 Number of SCRAP IRON CUTTER Visits 0 Physical Therapy Visit Comments Patient Comments agreeable to do PT Therapy Pain Assessment Pain When Pain Assessed At Rest Pain Present Pain Present Pain Reported Location Left Hip Intensity 3 Scale Used Numeric (0 - 10) Pain Behaviors Guarding Pain Management Techniques Distraction,Modification of Treatment,Re-positioning, Timing of Activity with Medications M4 PT-IP Mobility and Gait Start: 03/19/23 12:02 Freq: NEEDED Status: Active Protocol: Document 03/19/23 10:10 AB (Rec: 03/19/23 12:20 AB [id number]) PT-Bed Mobility Assessment Supine to Sit Supine to Sit Standby Assistance Sit to Supine Sit to Supine Standby Assistance PT-Transfer Assessment Sit to and From Stand Sit to and from Stand Standby Assistance,1 Person Assistance,Use of Upper Extremities Equipment Transfer Assistive Device Gait Belt,Front Wheeled Walker Orthotic/Prosthetic Devices or Brace: No Transfers Transfer Destination Bed,Chair Transfer Technique ambulated Transfer Ability Level of Assist Standby Assistance,1 Person Assistance,Use of Upper Extremities Comments Mobility Comments pt sitting on the chair. spouse in room. educated pt on L anterior hip precautions. pt completed sit to stand from the chair. pt tends to pull on FWW to stand. educated pt with sit<>stand techniques and completed again x 2 reps SBA. ambulated towards EOB ~ 12 ft min A using fWW. cued for L quads activation. required initial cues for hip precautions. pt educated on bed mobility techniques. repeated x 2 sets SBA. initial cues provided for techniques but afterwards completed without cues needed. completed sit to stand from EOB SBA ambulated in the hallway using FWW SBA ~ 150ft occasional cues for quads activation and precautions. reviewed car transfer techniques. educated pt and spouse regarding stair climbing. pt completed up/down platform step using FWW x 2 sets CGA to min A. spouse was able to assist and cue pt . completed up/down steps using B rails CGA to min A and cues. spouse assisted. assisted pt back to his room. pt ambulated form w/c to chair using FWW SBA. spouse assisted pt. positioned pt on the chair. pt and spouse without further concerns. educated spouse on how to use safety belt. spouse was able to don/doff safety belt on pt. OT took over pt's care. Gait Assessment Gait Gait Assistance Required: Standby Assistance,Contact Guard Assist Distance (Feet) 150 Able to Maintain Weight Bearing Status Yes During Gait Assistive Devices Assistive Device Gait Belt,Front Wheeled Walker Orthotic/Prosthetic Devices or Brace: No Gait Deviations General Gait Pattern Antalgic,Decreased Stride Length,Decreased Feet Clearance,Step-to Gait Factors Limiting Gait Function Factors Limiting Gait Function Decreased Activity Tolerance, Decreased Strength,Limited Range of Motion,Pain,Poor Balance,Poor Safety Awareness Stair Climbing Assessment Evaluation Level of Assist On Stairs Contact Guard Assistance, Minimal Assistance Devices Stair Climbing Assistive Devices Left Railing,Right Railing Technique/Endurance Stair Climbing Direction Ascend and Descend Stair Climbing Technique Step to Step Number of Steps Climbed 3 Query Text: Stair Climbing Set # Repetitions (reps) 2 PT-Balance Assessment Sitting Balance and Reactions Static Sitting Balance Ability Normal Dynamic Sitting Balance Ability Normal Standing Balance and Reactions Static Standing Balance Ability Good Dynamic Standing Balance Ability Fair Device Used FWW M5 PT-IP Objective Assessments Start: 03/19/23 12:02 Freq: NEEDED Status: Active Protocol: Document 03/19/23 10:10 AB (Rec: 03/19/23 12:20 AB [email or web address]) Orientation Orientation/Cognition Level of Alertness Alert Orientation Name,Situation Language Function Ability No Deficits Noted Safety Awareness Decreased Safety Awareness Memory Description Short Term Impaired Gross Range of Motion Lower Extremity ROM Assessment Within Functional Limits Strength Lower Extremity Strength Assessment Left Impaired Hip 3+/5 Knee 4-/5 Coordination Assessment Gross Coordination Gross Coordination WNL Sensation Assessment Sensation Gross Sensation WNL Muscle Tone Muscle Tone WNL Yes M6 PT-IP Treatment Start: 03/19/23 12:02 Freq: NEEDED Status: Active Protocol: Document 03/19/23 10:10 AB (Rec: 03/19/23 12:20 AB [id number]) Physical Therapy Treatment Education Education Provided Precautions,Weight Bearing Status,Post-Op Packet,Safety M7 PT-IP Assessment and Plan Start: 03/19/23 12:02 Freq: NEEDED Status: Active Protocol: Document 03/19/23 10:10 AB (Rec: 03/19/23 12:20 AB [id number]) PT Summary Assessment and Plan Potential Rehabilitation Potential Good Status of Condition at Evaluation Stable Summary Impairments Pain,ROM,Strength,Balance, Coordination,Sensation,Tone, Cognition,Bed Mobility, Transfers,Gait,Activity Tolerance Assessment Summary pt is a 67 y/o male who underwent L TY anterior approach POD 1. pt is WBAT LLE and with anterior hip precautions. pt plans to go home with spouse to assist. caregiver training completed and spouse was able to safely assist pt. pt may go home when medically stabel. Goals Bed Mobility Goal Independent Transfer Goal Independent,Front Wheeled Walker Gait Goal Independent,Front Wheel Walker Gait Distance 250 Other Goals up/down 2 platform steps using FWW mod I up/down 14 steps B rails mod I Days to Meet Goals 5 Frequency of Treatment Frequency Of Treatment Twice a Day Treatment Plan Physical Therapy Treatment Plan Bed Mobility Training,Transfer Training,Gait Training, Therapeutic Exercise,Balance Retraining,Post Op Education, Discharge Planning,Hot or Cold Pack,Neuromuscular Re-ed, Coordination Retraining,Manual Therapy Precautions Anterior Hip Precautions No Hip Extension,No Hip External Rotation Weight Bearing Status Weight Bearing Status Weight Bear as Tolerated Allowed Weight Bearing Amount (enter % LLE WBAT or #) (%) Recommendations To Nursing Amount of Assist Needed Standby Assistance Discharge Recommendations PT Discharge Recommendations Home with Assistance, Outpatient PT Transportation Needs at Discharge Private Vehicle
--- NOTE | 2023-03-19 11:38 | OT.IP.EVAL ---
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 Migraine Murmur Obstructive sleep apnea Snoring Unilateral primary osteoarthritis, right hip Surgical History (Last Reviewed 01/14/22 @ 13:10 by Rodger Vargas MD) History of colonoscopy History of right hip replacement (~07/2019) History of tonsillectomy S/P excision of lipoma (~2004) Occupational Therapy Inpatient Evaluation/Re-Eval M1 PT/OT-IP Prior Functional Status Start: 03/19/23 12:07 Freq: NEEDED Status: Active Protocol: Document 03/19/23 11:05 [facility] (Rec: 03/19/23 12:24 [facility] [id number]) Medical Review Prior Functional Status Communication Independent Mobility and Gait Pt had pain which limited his walking. Pt did not use a device to walk with. Activities of Daily Living and IADL's Pt able to do with pain for ADL and IADl needs. Social History Household Members spouse Living Arrangements House Number of Floors (Floors) Two Floors Number of Stairs To Enter/Railing? 3 steps with no rails and 14 steps to the bedroom with left banister and 1/2 wall on the right. Home Environment Standard Height Toilet,Walk in Shower Home Equipment Front Wheel Walker,Straight Cane,Raised Toilet Seat Without Armrests,Shower Seat without Backrest,User Support Specialist,Sock Aid Additional Social History Comment Pt has a supportive to be able to assist pt at home. M2 OT-IP Current Condition Start: 03/19/23 12:07 Freq: Status: Active Protocol: Document 03/19/23 11:05 [facility] (Rec: 03/19/23 12:24 [facility] [id number]) Occupational Therapy Current Condition Current Condition Evaluation Date 03/19/23 Treatment Diagnosis S/p L TY anterior approach. Diagnosis Onset Date 03/18/23 Post Operative Precautions Anterior Hip Precautions No Hip Extension,No Hip External Rotation M3 OT- IP Subjective and Pain Start: 09/13/23 12:07 Freq: Status: Active Protocol: Document 03/19/23 11:05 [facility] (Rec: 03/19/23 12:24 [facility] [id number]) OT- Subjective Occupational Therapy Visit Type Type Initial Evaluation Visit Start Time 11:05 Visit Stop Time 11:38 Total Visit Minutes 33 Occupational Therapy Visit Comments Patient Comments Pt agreed to shower and pt's present for OT eval. Patient/Caregiver Goals TO go home. OT Pain Assessment Pain When Pain Assessed At Rest Pain Present Pain Present Denied Pain M4 OT- IP ADL's Start: 03/19/23 12:07 Freq: Status: Active Protocol: Document 03/19/23 11:05 [facility] (Rec: 03/19/23 12:24 [facility] [id number]) OT IHQ-[id number]-Hjuztmy General Evaluation Self-Feeding Ability Independent OT ADL-Grooming General Evaluation Grooming Ability Independent OT ADL-Oral Care General Eval Oral Care Ability Independent OT ADL-Dressing General Eval Upper Body Dressing Ability Minimal Assistance Lower Body Dressing Ability Maximum Assistance Areas Needing Assistance Socks,Shoes Comments OT Dressing Comments Pt needing assist to get button shirt on over his shoulders. Pt needing assist from his for socks and pants to get over his feet. Pt has a drafter electronic at home he can use to assist. OT ADL-Toileting Comments OT Toileting Comments Pt states able to use urinal at home if needed. OT ADL-Bathing Bathing Type Bathing Type Shower General Evaluation Bathing Ability Minimal Assistance,Moderate Assistance Areas Needing Assistance Wash/Dry Back,Wash/Dry Lower Extremities Comments OT Bathing Comments Pt needing assist for his back and LLE to wash and dry. Pt also needing use of greb bar for steadying or just CGA while standing to do pericare needs. M5 OT- IP IADL's Start: 03/19/23 12:07 Freq: Status: Active Protocol: Document 03/19/23 11:05 [facility] (Rec: 03/19/23 12:24 [facility] [id number]) OT-Instrumental Activities of Daily Living Deficits IADL Deficits Identified Deficits Home Safety Awareness Awareness of Need for Assistance at Home Good Awareness Ability to Problem Solve Emergency Able to Problem Solve Situations Home Safety Comments Pt's able to assist pt at home for needs as needed. Medication Management Medication Management No Deficits Identified Money Management Money Management No Deficits Identified Meal Preparation Meal Preparation Caregiver Provides Assist Insurance Agency Manager Insurance Agency Manager Caregiver Provides Assist M6 OT- IP Functional Cognition Start: 03/19/23 12:07 Freq: Status: Active Protocol: Document 03/19/23 11:05 [facility] (Rec: 03/19/23 12:24 [facility] [id number]) Cognitive Factors Limiting Selfcare Function Cognitive Ability Level of Alertness Alert Patient Orientation Name,Place,Situation Attention Span Ability Capable of Focused Attention, Capable of Sustained Attention Ability to Follow Commands Able to Follow Multi-Step Commands Memory Description No Deficits Noted Safety Awareness No Deficits Noted Problem Solving Ability No deficits Noted Cognitive Comments Cognitive Assessment Comments Pt intact and able to follow his hip precautions for ADl and mobility needs. OT- Vision and Hearing OT- Hearing Assessment OT- Hearing Assessment WFL M7 OT- IP Mobility and Balance Start: 03/19/23 12:07 Freq: Status: Active Protocol: Document 03/19/23 11:05 [facility] (Rec: 03/19/23 12:24 [facility] [id number]) OT-Transfer Assessment Sit to and From Stand Sit to and from Stand Standby Assistance Transfers Transfer Ability Standby Assistance,Contact Guard Assistance Technique Transfer Destination Chair,Shower Stall Devices Transfer Assistive Devices Gait Belt,Front Wheeled Walker Comments Mobility Comments CGA to step over the threshold of the shower. Otherwise pt is SBA with FWW and good safety of following his hip precautions. OT- Balance Assessment Sitting Balance and Reactions Static Sitting Balance Ability Normal Dynamic Sitting Balance Ability Good Standing Balance and Reactions Static Standing Balance Ability Good Dynamic Standing Balance Ability Good M8 OT- IP Objective Assessments Start: 03/19/23 12:07 Freq: Status: Active Protocol: Document 03/19/23 11:05 [facility] (Rec: 03/19/23 12:24 [facility] [id number]) OT Gross Range of Motion Upper Extremity Range of Motion Assessment Within Functional Limits OT Strength Upper Extremity Strength Assessment Within Functional Limits OT-Muscle Tone Assessment Muscle Tone WNL Yes M9 OT- IP Assessment and Plan Start: 03/19/23 12:07 Freq: Status: Active Protocol: Document 03/19/23 11:05 [facility] (Rec: 03/19/23 12:24 [facility] [id number]) OT Summary Assessment and Plan Potential Rehabilitation Potential Excellent Analytic Complexity at Evaluation Low Summary OT Impairments Balance,Functional Mobility, Dressing,Toileting,Bathing, Shower Transfers Progress Towards Goals Progressing Toward Goals Assessment Summary Pt low complexity and doing well and looking to go home today. Pt able to follow his hip precautions for dressing and showering needs. Pt states good understanding to be able to assist the pt at home. Pt go home with assist and have outpt PT. Goals Dressing Goal Independent Bathing Goal Independent Shower Transfer Goal Independent Days to Meet Goals 2 Frequency of Treatment Frequency Of Treatment Once a Day Treatment Plan OT Treatment Plan ADL Training,Functional Mobility,Patient/Family Education,Discharge Planning Discharge Recommendations OT Discharge Recommendations Home with Assistance, Outpatient PT Transportation Needs at Discharge Private Vehicle
--- NOTE | 2023-03-19 11:40 | CM.DANOTE ---
Patient is a 67 yo male who was admitted on 03/18/23 for LTHA. Pt has [employer] and [employer] for insurance and his PCP is Dr. Coleman Harden. EMR was reviewed. Per Ortho PA, pt tolerated procedure well and currently has pain controlled, voiding independently, and tolerating diet. Pt medically stable to d/c home today pending PT/OT. SW met bedside with pt and spouse and explained role and they confirm they live at home in [place] and both are active and independent at baseline and pt does not typically use DME for ambulation and he still drives. Spouse is his DPOA and pt denies any hx of HH or SNF. Pt states he has a hx of RTHA as well and both he and spouse know what to expect with recovery from hip surgery. Pt already established with outpt PT and has upcoming appointment for PT next week. Pt and spouse do not anticipate any needs at d/c and preference is home today via spouse POV. Per OT, pt participated well and recommending home with spouse assist and outpt PT and pt plans to eat lunch and then discharge home. Plan: Patient to d/c home after lunch via spouse POV and outpt f/u with Ortho and outpt PT already set up. No further SW needs at this time. MARTITA Liang Discharge Planning/Care Management Advanced directive, confirm from FAMILY Start: 03/18/23 18:48 Freq: Q24H Status: Active Protocol: Document 03/18/23 18:51 [facility] (Rec: 03/18/23 18:52 [facility] [id number]) Advance Directive, confirm on record Time 18:51 Person contacted pt Copy received No CM Discharge Assessment Start: 03/19/23 11:39 Freq: Status: Active Protocol: Document 03/19/23 11:39 BF (Rec: 03/19/23 11:40 [facility] [id number]) Discharge Planning Assessment Assigned Silverware Etcher MARTITA Patel DPOA/Assigned Designee Name spouse Yeni Contact Information [phone] Advance Directives? Yes Advance Directives on File No History Provided By Patient,Significant Other, Medical Record Has Patient been admitted in last 30 No days? Prior Living Arrangements House Household Members spouse Type of transporation used prior to Drives own vehicle admit Independent with ADL's Yes Is patient alert and oriented? Yes Caregiver for Another No Community Services used prior to Physical Therapy admission: DME Already Rented / Owned FWW / Walker,Cane Patient/Family Preference OP PT Therapy Barriers to Discharge No Discharge Plan Home Community Services Physical Therapy Transportation Arrangement will drive where needed. daughter available too Referrals Initiated None needed Whiteboard Updated in Patient Room with Yes name and ext. # of Silverware Etcher Review Status In Process Please Provide Date Initial DC 03/19/23 Assessment Was Performed Next Review Type Continued Stay Review Pre-Anesthesia Assessment Start: 03/13/23 10:19 Freq: Status: Active Protocol: Document 03/13/23 10:19 TC (Rec: 03/13/23 10:47 TC [id number]) Pre-Anesthesia Assessment Patient Information Reviewed Via Phone Assessment Assessment Completed With Patient Diagnostic Results BMP/CMP,CBC,Other Comment scanned Primary Care Provider Coleman Harden Medical Clearance Received Yes Seen Specialist in Last 12 Months Yes Specialist Seen Librarian School,Orthopedist, Sleep specialist Primary Language Vietnamese Preferred Language Vietnamese Height 167.64 cm Weight 83.461 kg Body Mass Index (BMI) 29.7 Hearing Ability Normal Visual Impairment Partially Limited Visual Assist Glasses Dentition Type Teeth, Missing,Partial- Lower, Partial- Upper,Dental Implants Barriers to Learning None Hx Anesthesia Reactions No Hx Family Anesthesia Reaction No Hx Malignant Hyperthermia No Hx Blood Transfusions No Hx Blood Transfusion Reaction No Anesthesia Review Requested No Cooker Process Cheese No alcohol intake current alcohol intake frequency 0-2 drinks per day Smoking Status Former smoker Tobacco type pipe,cigars how long ago did patient quit smoking 2007 for pipe; cigars 2013 Substance Use Type marijuana Comment edibles Musculoskeletal Symptoms Abnormal Gait,Difficulty Walking,Joint Pain,Joint Stiffness,Limited Range of Motion,Radiating Pain into Limb History of Falling (Recent or History of No ) Patient is completely paralyzed or No completely immobile Ambulatory Aid None/bed rest/nurse assist Mental Status Oriented to own ability Comment has walker for after surgery Is patient on oxygen? No Does patient have MALDONADO/SOB No Hx Sleep Apnea Yes CPAP/BIPAP use prescribed and used routinely Currently Taking a Beta Arjun No Can You Climb a Flight of Stairs Without Yes SOB Hx Chest Pain No Hx SOB No Hx Syncope or Dizziness No Anti-Coagulant Therapy No: ASA 81 mg stopped on Has a Grinder Lap No Cardiac Testing No Hx Pacemaker/ICD No Pacemaker Rep Required? No Cardiac Clearance Received Not Applicable Diet Type At Home Regular Dysphagia No Chronic UTI No Bladder Pattern Frequency Urinary Catheter Present No Hx Urinary Self Catheterization No Diabetes No HgbA1C 5.6 Date 01/10/23 Hx Drug Resistant Organism No Presence of External or Internal Medical No: left hip, dental implants Devices Have you had any close contact with No someone diagnosed with COVID-19? Are you experiencing any of these No symptoms symptoms? Evaluation/Screening for possible COVID- Yes 19 infection completed? Received a COVID vaccine? Yes Marital Status Lives With spouse Current Living Arrangements House Number of Floors (Floors) Two Floors Number of Stairs To Enter/Railing? entry 3 with no railing, 13 to get to bedroom with railing Support System Spouse Does the Patient Have Assistance After Yes Surgery Patient Discharge Plan Description Return Home Comment Patient advised of overnight stay Feels Safe in Current Environment Yes Been Physically Hurt or Threatened By a No Person in Current Environment If Yes, Provider Notified No Do you have thoughts of harming yourself None or others? Are you currently considering suicide? No Do you have a plan to hurt yourself or No Plan others? Do You Have Any Spiritual Beliefs That No May Affect Your HC Choices? Do You Have Any Cultural Practices That No May Affect Your HC Choices? Comment science Health Care Proxy/Next of Kin Yeni Monique (spouse) Health Care Proxy Emergency Contact Name Yeni Monique (spouse) Emergency Contact Advance Directives? Yes Advance Directives on File No Power of Manufacturing Maintenance Mechanic Yes Power of Manufacturing Maintenance Mechanic Name Yeni Monique Power of Manufacturing Maintenance Mechanic PAC Instructions Assistance for 24 hours post- op,Bring CPAP/BIPAP,Do not shave/clip surgical site, Durable medical equipment, Medications to take/avoid, Nasal antibiotic,No ETOH/ petroleum product on skin DOS, Pre-surgical wash,Sturdy shoes /comfortable clothes,Do not bring valuables and remove jewelry
== END 2023-03-19 13:01 | disposition home or self-care (01) ==
LOC: OR 11:57 → AC 12:05
PROVIDERS: PCP Family Medicine; Referring Provider Orthopaedic Surgery; Visit Provider Orthopaedic Surgery
PROC: (CPT 27130; principal; 2023-03-18 13:45)
DX: M16.12 Unilateral primary osteoarthritis, left hip (principal); I10 Essential (primary) hypertension; G47.30 Sleep apnea, unspecified; E78.00 Pure hypercholesterolemia, unspecified; E03.9 Hypothyroidism, unspecified
CPT/HCPCS: 27130; 36415; 73502; 76000; 85014; 85018; 97161; 97165; 97530; 97535; C1776; C9290; J0171; J0690; J1100; J2405; J2704